=== PATIENT | female | born 1980 | race Caucasian/White ===

== ENCOUNTER 2018-05-16 08:18 | Emergency (ER) | payer OTHER ==
[~2018-05-16] VITALS: Ht 170.2 cm; Wt 83.9 kg
--- OUTSIDE RECORDS SUMMARY | 2018-05-16 08:21 | XMS REPORT ---
[facility] Phone Unavailable Care Team Providers Care Real Estate Administrator Name Role Phone Unavailable Unavailable Problems This patient has no known problems. Allergies, Adverse Reactions, Alerts This patient has no known allergies or adverse reactions. Medications This patient has no known medications. Encounters Start Date/Time End Date/Time Encounter Type Admission Type Attending [facility] Care Department Encounter ID 2018-02-17 00:00:00 Inpatient [facility] [id number] 2018-01-13 00:00:00 Inpatient [facility] [id number] 2018-01-06 09:36:01 Inpatient [facility] [id number] 2018-01-20 11:04:54 2018-01-20 11:04:54 Outpatient [facility] [id number] 2018-01-20 00:00:00 2018-01-20 00:00:00 Outpatient [facility] [id number] 2018-01-06 11:05:26 2018-01-06 11:05:26 Outpatient [facility] [id number] 2017-08-12 00:00:00 2017-08-12 00:00:00 Outpatient [facility] [id number] 2017-08-05 10:46:27 2017-08-05 10:46:27 Outpatient [facility] [id number] 2017-07-20 08:21:42 2017-07-20 08:21:42 Emergency [facility] [id number] 2017-07-20 04:49:15 2017-07-20 04:49:15 Emergency [facility] [id number] 2017-02-16 13:25:00 2017-02-16 13:25:00 Outpatient [facility] [id number] 2017-02-11 00:00:00 2017-02-11 00:00:00 Outpatient [facility] [id number] 2017-02-04 00:00:00 2017-02-04 00:00:00 Outpatient [facility] [id number] 2017-02-04 00:00:00 2017-02-04 00:00:00 Outpatient [facility] [id number] 2017-02-04 00:00:00 2017-02-04 00:00:00 Outpatient [facility] [id number] 2017-01-22 07:24:59 2017-01-22 07:24:59 Outpatient [facility] [id number] 2017-01-22 05:36:22 2017-01-22 05:36:22 Outpatient [facility] [id number] 2017-01-22 03:36:49 2017-01-22 03:36:49 Emergency [facility] [id number] 2017-01-22 02:34:11 2017-01-22 02:34:11 Outpatient [facility] [id number] 2017-01-22 00:00:00 2017-01-22 00:00:00 Emergency [facility] [id number]
--- NOTE | 2018-05-16 10:02 | Diagnostic Imaging Report ---
PROCEDURE:X-RAY LEFT ELBOW, COMPLETE COMPARISON:None. INDICATIONS:ELBOW PAIN FINDINGS: No evidence of fracture, malalignment, or joint effusion. The bones are well-mineralized. The soft-tissues are unremarkable. CONCLUSION: Unremarkable left elbow radiographs. Dictated by: SANJUANITA HILLS M.D. on 05/16/2018 at 10:12 Electronically approved by: SANJUANITA HILLS M.D. on 05/16/2018 at 10:12
[2018-05-16 10:04] VITALS: BP 119/87
== END 2018-05-16 10:11 | disposition home or self-care (01) ==
LOC: ER 08:18
DX: S53.402A Unspecified sprain of left elbow, initial encounter (principal); Y35.811A Legal intervention involving manhandling, law enforcement official injured, initial encounter; Y92.008 Other place in unspecified non-institutional (private) residence as the place of occurrence of the external cause; Z85.528 Personal history of other malignant neoplasm of kidney; Z90.5 Acquired absence of kidney; Z88.1 Allergy status to other antibiotic agents; Z88.5 Allergy status to narcotic agent; Z91.09 Other allergy status, other than to drugs and biological substances
CPT/HCPCS: 99282

== ENCOUNTER 2021-06-18 18:49 | Emergency (ER) | payer OTHER ==
[~2021-06-18] VITALS: Ht 170.2 cm; Wt 83.9 kg
[2021-06-18] MEDS ORDERED: CYCLOBENZAPRINE5 MG PO (19:08)
== END 2021-06-18 19:14 | disposition home or self-care (01) ==
LOC: EDBD 18:49 → ER 19:08
DX: M54.50 Low back pain, unspecified (principal); M79.18 Myalgia, other site; Z87.19 Personal history of other diseases of the digestive system; Z85.528 Personal history of other malignant neoplasm of kidney; Z85.89 Personal history of malignant neoplasm of other organs and systems
CPT/HCPCS: 99282